=== PATIENT | female | born 1990 | race African-American/Black ===

== ENCOUNTER 2023-12-21 08:17 | Inpatient (IN) ==
[2023-12-21 09:22] LABS: ABS Eosinophils 0.1 10^3/uL (0.0-0.5); ABS Lymphocytes 1.4 10^3/uL (1.0-4.8); ABS Monocytes 0.3 10^3/uL (0.0-0.9); ABS Neutrophils 4.1 10^3/uL (1.5-7.6); ABS Nucleated RBC 0.01 10^3/ul; Eosinophil % 1.4 %; Hematocrit 39.8 % (35-45); Hemoglobin 13.3 g/dL (11.5-14.3); Lymphocyte % 24.2 %; Mean Corpuscular Hemoglobin 31.3 pg (27-33); Mean Corpuscular Hgb Conc 33.3 g/dL (31-36); Nucleated Red Blood Cells % 0.1 %/100WBC (0.0-0.8); Platelet Count 223 10^3/uL (150-450); Red Blood Count 4.24 10^6/uL (3.63-4.92); White Blood Count 5.8 10^3/uL (3.8-11.8)
[2023-12-21 09:29] LABS: Urine Appearance Clear; Urine Bilirubin Negative (Negative); Urine Blood 1+ (Negative); Urine Color Light-Yellow; Urine Glucose Negative (Negative); Urine Ketones Trace (Negative); Urine Nitrite Negative (Negative); Urine Protein Negative (Negative); Urine Specific Gravity 1.021 (1.002-1.030); Urine Urobilinogen Negative (Negative)
[2023-12-21 09:33] LABS: Urine Bacteria Absent /HPF (Absent); Urine Red Blood Cell 3+(>10/hpf) /HPF (0-Trace); Urine Squamous Epithelial Cell Present /HPF (Absent); Urine White Blood Cell Trace(0-5/hpf) /HPF (0-Trace)
[2023-12-21 09:40] LABS: Urine Benzodiazepine Screen None Detected (None Detect); Urine Cannabinoids Screen Presumptive Positive (None Detect); Urine Opiates Screen None Detected (None Detect)
[2023-12-21 10:03] LABS: ALT 10 U/L (7-52); AST 17 U/L (13-39); Acetaminophen < 15 mcg/mL; Albumin 4.4 g/dL (3.2-5.2); Albumin/Globulin Ratio 1.6 (1-3); Alcohol, S < 13 mg/dL (<13); Alkaline Phosphatase 53 U/L (35-149); Anion Gap 8 mmol/L (2-16); Blood Urea Nitrogen 24 mg/dL (6-24); CO2 Carbon Dioxide 21 mmol/L (22-32); Calcium 9.2 mg/dL (8.6-10.3); Chloride 105 mmol/L (101-111); Creatinine, Serum 0.85 mg/dL (0.51-0.95); Globulin 2.7 g/dL (2-4); Glucose 95 mg/dL (70-100); Potassium 4.3 mmol/L (3.5-5.0); Salicylate < 2.50 mg/dL (<30); Sodium 134 mmol/L (135-145); Total Bilirubin 0.4 mg/dL (0.2-1.0); Total Protein 7.1 g/dL (6.4-8.9); eGFR CKD-EPI 93.3 (>60)
[2023-12-21 10:10] LABS: HCG Pregnancy < 0.60 mIU/mL
[2023-12-21 10:19] LABS: TSH Ultra Thyroid Stim Horm 1.68 mcIU/mL (0.34-5.60)
[2023-12-21] MEDS ORDERED: Al Hydrox/Mg Hydrox/Simet LIQ 30 ML UDC PO PRN (14:43)
[2023-12-21] MEDS ORDERED: Lorazepam PYXIS KEY PRN (14:55)
[2023-12-21] MEDS ORDERED: LORazepam 2 MG/ML 1 mL Syringe ONE (14:56)
[2023-12-21] MEDS ORDERED: Nicotine GUM 2MG FRUIT FLAVOR PO PRN (15:00)
[2023-12-21] MEDS: LORazepam 2 mg VIAL 1 ml IM ONE (15:03)
[2023-12-21 15:27] VITALS: BP 108/66
[2023-12-21] MEDS: OLANZapine 10 mg TAB*ODT PO ONE (20:04)
[2023-12-21] MEDS: OLANZapine 10 mg TAB*ODT ONE (21:26)
[2023-12-22] MEDS: Vitamin THERAPEUTIC TAB PO SCH (10:18)
[2023-12-22] MEDS ORDERED: Albuterol HFA INHALER 8 gm MDI INH PRN (11:43)
[2023-12-22] MEDS ORDERED: OLANZapine 5 mg TAB *ODT PO PRN (11:44)
== END 2023-12-22 14:20 | disposition home or self-care (01) | DRG 883 ==
LOC: ED 08:17 → BSU 14:36
PROVIDERS: ADMIT Psychiatry & Neurology Addiction Psychiatry; ATTEND Psychiatry & Neurology Psychiatry